=== PATIENT | female | born 1950 | race Caucasian/White ===

== ENCOUNTER 2019-01-29 14:30 | Emergency (ER) | payer MEDICARE ==
[2019-01-29] MEDS ORDERED: Adacel (T-DAP) 0.5 ML SYRINGE ONE (15:03)
[2019-01-29] MEDS ORDERED: Doxycycline 100 MG CAP ONE (15:06)
== END 2019-01-29 15:27 | disposition home or self-care (01) ==
LOC: SCSER 14:30
DX: S10.95XA Superficial foreign body of unspecified part of neck, initial encounter (principal); W45.8XXA Other foreign body or object entering through skin, initial encounter
CPT/HCPCS: 90471; 90715

== ENCOUNTER 2020-12-25 14:16 | Outpatient (CLI) | payer MEDICARE ==
--- NOTE | 2020-12-25 15:10 | CT ---
CT pulmonary lung scan without IV contrast INDICATION: Lung cancer screening protocol; 70-year-old female; former smoker, less than 1 pack per d ay for 50 years; quit one year ago;personal history of smoking COMPARISON: Chest radiograph dated July 18, 2013 from [facility] FINDINGS: LUNGS: Nodules\mass: There is a spiculated right upper lobe lung mass measuring 3.5 x 3.5 cm with spiculated scarring contacting the anterior lateral right pleural surface. There is an additional noncalcified pulmonary nodule in the posterior medial right lower lobe on image 97 of series 3 measur ing 7.4 mm. There is a focus of reticular nodularity within the superior segment of the right lower lobe on image 70 of series 3. There is scattered emphysema. No suspicious pulmonary nodules are seen within the left lung. Emphysema: Scattered moderate centrilobular emphysema Additional findings: There are coronary artery and thoracic aortic calcifications. Mediastinum: No lymphadenopathy. Upper abdomen: There is a 1.3 cm stone within the proximal right ureter inducing moderate to severe r ight hydronephrosis. Osseous structures: There is vertebroplasty change at T11 and T12. There is thoracolumbar scoliosis. There is Modic endplate degenerative changes seen on the left at L2-3.. IMPRESSION: Lung-RADS Category 4B: Suspicious. Pulmonary consultation is advised to determine direction of furth er evaluation. Category S: 1.3 cm stone within the proximal right ureter inducing moderate to severe right hydroneph rosis. Category C: Not applicable. Findings called to Dr. Phoenix at 3:00 PM on December 25, 2020.
--- NOTE | 2020-12-25 16:18 | MMO ---
Bilateral MAMMO Bilat Screen [facility]. CLINICAL HISTORY: Patient is 70 years old and is seen for screening. The patient has no family history of breast cancer. The patient has no personal history of cancer. VIEWS: The views performed were: bilateral craniocaudal with tomosynthesis and bilateral mediolateral oblique with tomosynthesis. FILMS COMPARED: The present examination has been compared to prior imaging studies performed at [facility] on 03/11/2016, 07/29/2017, 08/09/2018 and 09/13/2019. This study has been interpreted with the assistance of computer-aided detection. MAMMOGRAM FINDINGS: There are scattered fibroglandular densities. There are no suspicious masses, suspicious calcifications, or new areas of architectural distortion. IMPRESSION: THERE IS NO MAMMOGRAPHIC EVIDENCE OF MALIGNANCY. A ROUTINE FOLLOW-UP MAMMOGRAM IN 1 YEAR IS RECOMMENDED. THE RESULTS OF THIS EXAM WERE SENT TO THE PATIENT. ACR BI-RADS Category 1 - Negative MAMMOGRAPHY NOTE: 1. A negative mammogram report should not delay a biopsy if a dominant of clinically suspicious mass is present. 2. Approximately 10% to 15% of breast cancers are not detected by mammography. 3. Adenosis and dense breasts may obscure an underlying neoplasm. Reported by: PHOENIX DAUGHERTY MD Electonically Signed: [id number]
== END 2020-12-25 14:17 | disposition home or self-care (01) ==
LOC: BICCT 14:16
PROVIDERS: ATTEND Internal Medicine
DX: Z12.31 Encounter for screening mammogram for malignant neoplasm of breast (principal); Z12.2 Encounter for screening for malignant neoplasm of respiratory organs; Z87.891 Personal history of nicotine dependence; N13.2 Hydronephrosis with renal and ureteral calculous obstruction
CPT/HCPCS: 77063; 77067; G0297; 71271

== ENCOUNTER 2021-01-03 09:17 | Outpatient (CLI) | payer MEDICARE ==
--- NOTE | 2021-01-03 11:03 | PET ---
Radionucleotide PET scan with CT attenuation correction HISTORY: Lung mass. COMPARISON: CT chest 12/25/2020. FINDINGS: Radiotracer uptake associated with the spiculated right upper lobe mass is markedly increas ed. Max SUV 9.2. Morphologic appearance of the mass is unchanged from recent CT exam. No other hypermetabolic lung lesions or mediastinal lymph nodes are evident. Adrenal glands show norm al uptake. Slightly increased uptake associated with the T10 and T11 vertebral bodies is associated with prior v ertebroplasty sites. The nondiagnostic CT attenuation correction images show calcified granulomata are consistent with hea led granulomatous disease. Moderate right hydronephrosis is apparent to the level of a calcification in the proximal right ureter that is 1.3 cm greatest diameter on the axial images. IMPRESSION : Hypermetabolic large right upper lobe lung mass, likely a primary neoplasm. No evidence of metastatic disease. High-grade obstruction at a 1.3 cm proximal right ureteral calculus.
== END 2021-01-03 09:18 | disposition home or self-care (01) ==
LOC: PET 09:17
PROVIDERS: ATTEND Internal Medicine
DX: R91.8 Other nonspecific abnormal finding of lung field (principal); N20.1 Calculus of ureter
CPT/HCPCS: 78815; A9552

== ENCOUNTER 2021-01-31 12:58 | Outpatient (CLI) | payer MEDICARE ==
[2021-01-31 14:25] LABS: Bilirubin Neg (Negative); Blood, Urine 10 (Negative); Clarity Slightly Cloudy (Clear); Glucose, Urine (Dipstick) Normal (Negative); Ketone, Urine Negative (Negative); Leukocyte 25 (Negative); Nitrite Negative (Negative); Protein, Urine (Dipstick) Negative (Neg-Trace); Specific Gravity, Urine 1.015 (1.002-1.036); Urobilinogen Normal mg/dL (Less than 2)
[2021-01-31 14:32] LABS: Hemoglobin 14.3 g/dL (12.0-15.5); Mean Corpuscular HGB CONC 31.9 g/dL (32.0-36.0); Mean Corpuscular Hemoglobin 30.8 pg (27.0-33.0); Mean Corpuscular Volume 96.3 fl (81.6-98.3); Mean Platelet Volume 11.6 fl (7.4-10.4); Platelet Count 329 10x3/uL (150-450); RBC Distribution Width 12.8 % (11.5-14.5); Red Blood Cell (RBC) Count 4.65 10x6/uL (3.90-5.03); White Blood Cell (WBC) Count 8.6 10x3/uL (3.5-10.5)
[2021-01-31 14:49] LABS: Squamous Epithelial 0-3 HPF (0-3); Yeast-Budding 1+ HPF (None Seen)
[2021-01-31 14:50] LABS: Bacteria/HPF Rare-Few HPF (None Seen); RBC/HPF 0-3 HPF (0-3)
[2021-01-31 15:28] LABS: Anion Gap 14 mmol/L (10-20); BUN (Urea Nitrogen) 26 mg/dL (9.8-20.1); Calc. Creatinine Clearance 0 mL/min (70-130); Carbon Dioxide 28 mmol/L (23-31); Chloride 103 mmol/L (98-107); Glucose 103 mg/dL (83-110); Potassium 4.1 mmol/L (3.5-5.1); Sodium 141 mmol/L (136-145)
[2021-02-01 02:22] LABS: SARS-CoV-2 PCR by NAA Not Detected (NotDetected)
== END 2021-01-31 12:59 | disposition home or self-care (01) ==
LOC: LABBT 12:58
PROVIDERS: ATTEND Urology
DX: Z01.818 Encounter for other preprocedural examination (principal); Z20.822 Contact with and (suspected) exposure to COVID-19
CPT/HCPCS: 80048; 81001; 85027; 87086; 93005; U0003; U0005; 87635; 93010

== ENCOUNTER 2021-02-04 10:33 | Day surgery (SDC) | payer MEDICARE ==
[2021-02-03 10:14] VITALS: BMI 26.3
[~2021-02-04 10:33] MED LIST: Dexamethasone 20 MG/5 ML VIAL ONE; Glycopyrrolate 0.2 MG/ML 5 ML SYRINGE ONE; Lidocaine 1% PF 5 ML VIAL ONE; Ondansetron PF 4 MG/2 ML Vial ONE; PHENYLEPHRINE-NS 100 MCG/ML 10 ML SYRINGE ONE; PROPOFOL 200 MG/20 ML VIAL ONE; Rocuronium Bromide 10 MG/ML (10ML VIAL) ONE
[2021-02-04] MEDS ORDERED: Levofloxacin 500 mg/D5W 100 ml Premix Bag ONE (12:08)
[2021-02-04] MEDS ORDERED: Iothalamate Meglumine 60% 50 ML VIAL FS ONE (12:26)
[2021-02-04] MEDS ORDERED: Fentanyl 100 MCG/2 ML VIAL ONE (12:30)
[2021-02-04] MEDS ORDERED: Oxybutynin 5 MG TAB ONE (13:44)
[2021-02-04] MEDS ORDERED: traMADol HCl 50 MG TAB ONE (14:26)
== END 2021-02-04 14:30 | disposition home or self-care (01) ==
LOC: SDC 10:33
PROVIDERS: ATTEND Urology
PROC: 0TC38ZZ Extirpation of Matter from Right Kidney Pelvis, Via Natural or Artificial Opening Endoscopic (ICD-10-PCS; principal; 2021-02-04)
PROC: 0T768DZ Dilation of Right Ureter with Intraluminal Device, Via Natural or Artificial Opening Endoscopic (ICD-10-PCS; 2021-02-04)
DX: N13.2 Hydronephrosis with renal and ureteral calculous obstruction (principal); G89.29 Other chronic pain; M54.5 Low back pain; M19.90 Unspecified osteoarthritis, unspecified site; F32.9 Major depressive disorder, single episode, unspecified; G47.00 Insomnia, unspecified; Z87.891 Personal history of nicotine dependence; Z79.899 Other long term (current) drug therapy; Z91.048 Other nonmedicinal substance allergy status
CPT/HCPCS: 74420; 82365; 88300; J1100; J1956; J2405; J2704; J3010